=== PATIENT | male | born 1995 | race Caucasian/White ===

== ENCOUNTER 2022-05-02 11:31 | Outpatient (REF) | payer OTHER, SELFPAY ==
[2022-05-02 12:01] LABS: COVID-19 Test Negative (Negative); IDNOW Serial# 08D9AD1C
== END 2022-05-02 11:32 | disposition home or self-care (01) ==
LOC: HO.LAB 11:31
PROVIDERS: Visit Provider Internal Medicine
DX: Z20.822 Contact with and (suspected) exposure to COVID-19 (principal)
CPT/HCPCS: 87635; C9803

== ENCOUNTER 2022-05-02 12:00 | Outpatient (RCR) | payer OTHER, SELFPAY ==
--- NOTE | 2022-04-28 14:38 | PC.NURSE ---
Tommy called and stated that he can not continue because he does not have childcare.
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
[2022-05-02 10:38] LABS: Amphetamine Screen Urine Not Detected (Not Detect); Barbiturates, Urine Not Detected (Not Detect); Benzodiazepines Screen Urine Not Detected (Not Detect); Cannabinoid Screen Urine POSITIVE (Not Detect); Cocaine Screen Urine POSITIVE (Not Detect); Fentanyl, urine Not Detected (Not Detect); Opiate Screen Urine Not Detected (Not Detect); Phencyclidine Screen Urine Not Detected (Not Detect)
[2022-05-02 10:54] VITALS: BMI 19.3
--- NOTE | 2022-05-02 11:29 | PC.NURSE ---
This morning patient denied any sxs of Covid, Temperature was 98.6, and patient stated he tested negative for Covid in the last 14 days. When speaking to patient during the admission assessment he stated he tested positive for Covid on 04/24/22 using a home test and PCR test . Patient stated doctor told him at [facility] to quarantined for 5 days which he did. Patient stated he retested on 03/30/21 and tested negative with a home test. Reviewed with [facility] who stated that is the policy for hospital employees regarding quarantine for 5 days and negative test. Patient is wearing a mask while at [facility]. Reviewed with Public Administration Teacher Mary as well. Patient is currently getting a PCR test at [facility] to confirm.
[2022-05-02 11:49] VITALS: PULSE 80; TEMP 37
--- NOTE | 2022-05-02 14:15 | PC.NURSE ---
Patient tested negative for COVID. Called patient and let him know. Patient plans on coming back to the program tomorrow.
--- NOTE | 2022-05-02 14:16 | PC.ADMIT ---
Patient was referred to [facility] after he was seen in [facility] d/t increased depression with passive SI-no plan or intent, anxiety, and PTSD sxs. Stressors include a breakup with his girlfriend of 2.5 years a month ago, job loss, and was living in his car. Patient currently lives in a trailer on his mothers property. Patient struggling with substance use stating he used Cocaine yesterday after no use for 2 weeks. Patient reports he has been using Cocaine daily for the past year and prior to that had been sober for 4 years. Patient also using Marijuana daily. He also stated he had 2 sips of alcohol 2 weeks ago however stated he has been sober for 4 years. Patient is alert and oriented x4. Calm and cooperative. Denied SI or thoughts to harm himself. Medication reconciled with patient and patient's pharmacy.
--- NOTE | 2022-05-03 09:41 | PC.NURSE ---
Tommy called staff and left a message that he is stuck in traffic and would be late. At 929 I called patient and asked him if he could be here for 944. Patient stated he would not be able to be here at that time. He stated he had to drop his brother off in [place] and was stuck in [facility]. Patient apologized. Plans on coming to the program tomorrow and taking another route to get to the program so he will not be late. [facility] staff aware.
--- NOTE | 2022-05-04 08:02 | PC.NURSE ---
The client called and stated that he can not continue in the program due to lack of childcare and number of appointments. I gave him the number for [facility].
--- NOTE | 2022-05-04 15:19 | PC.NURSE ---
The client called and cancelled today because he does not have childcare.
--- NOTE | 2022-05-04 15:21 | PC.NURSE ---
I called Tommy and left a message to call me. I wanted to inform him that he will need to be here tomorrow or will have to be discharged.
--- NOTE | 2022-05-04 16:31 | PC.NURSE ---
I spoke with Tommy and informed him that he will need to be here tomorrow or he will be discharged. He said he would be here.
== END 2022-05-05 23:59 | disposition home or self-care (01) ==
LOC: HO.PHPA 12:00
PROVIDERS: Nurse Practitioner Psychiatric/Mental Health; Visit Provider Psychiatry & Neurology Psychiatry
DX: F33.1 Major depressive disorder, recurrent, moderate (principal); F41.1 Generalized anxiety disorder; F43.12 Post-traumatic stress disorder, chronic; F14.20 Cocaine dependence, uncomplicated; F10.20 Alcohol dependence, uncomplicated; F12.20 Cannabis dependence, uncomplicated
CPT/HCPCS: 80307; 90791; 90853

== ENCOUNTER 2025-04-22 21:06 | Emergency (ER) | payer BC, SELFPAY ==
[2025-04-22 21:29] VITALS: BP 120/59; PULSE 77; RESP 16; TEMP 36.6; O2SAT 97; BMI 20.5
[2025-04-22 21:46] LABS: MANUAL DIFF FLAG NO
[2025-04-22 21:47] LABS: Hematocrit 36.5 % (42.0-52.0); Hemoglobin 13.3 g/dl (14.0-18.0); Imm Gran Abs Auto 0.02 X10*3/uL (0.00-0.03); Imm Gran Pct Auto 0.2 % (0.0-0.4); Lymphocytes Absolute Auto 3.1 X10*3/uL (1.2-4.9); Mean Corpuscular HGB Conc 36.4 g/dl (31.0-36.0); Mean Corpuscular Hemoglobin 31.0 pg (27.0-33.0); Mean Corpuscular Volume 85.1 fL (80.0-98.0); NRBC Abs Auto 0.000 X10*3/uL (0.0-0.012); NRBC Pct Auto 0.0 /100WBC (0.0-0.2); Platelet Count 248 X10*3/uL (160-400); Red Blood Count 4.29 X10*6/uL (4.60-5.80); White Blood Count 8.0 X10*3/uL (4.8-10.8)
[2025-04-22 22:03] LABS: Alanine Aminotransferase 32 U/L (0-40); Albumin Level 4.5 g/dL (3.5-5.0); Alkaline Phosphatase 81 U/L (39-117); Anion Gap 12 (12-20); Aspartate Amino Transferase 36 U/L (5-37); Blood Urea Nitrogen 12 mg/dL (9-16); Calcium 9.1 mg/dL (8.4-10.2); Carbon Dioxide 25 mmol/L (22-29); Chloride 108 mmol/L (96-108); Creatinine Clr Calc Pharmacy 114.4; Estimated Glomerular Filt Rate > 60; Lipase 15 U/L (8-78); Potassium 3.9 mmol/L (3.3-5.1); Sodium 141 mmol/L (135-145); Total Protein 6.7 g/dL (6.5-8.0)
[2025-04-22 22:52] VITALS: BP 136/78; PULSE 64; RESP 14; TEMP 36.3; O2SAT 99
[2025-04-22 23:02] LABS: Appearance Urine Clear; Glucose Urine UA Negative (Negative); PH 6.0 (5.0-9.0); Specific Gravity - Urine 1.020 (1.005-1.025); UMIC TRIGGER UACC YES
--- NOTE | 2025-04-22 23:10 | MHC.EDTECH ---
pt brought in from the waiting room, changed into hospital gown, vitals obtained, pt ambulated to bathroom, UA collected and sent to lab. Call nicole within reach
[2025-04-22 23:16] LABS: Cannabinoid Screen Urine POSITIVE (Not Detect)
--- OUTSIDE RECORDS SUMMARY | 2025-04-22 23:48 | XMS_ITS | Continuity of Care Document ---
Author Name [facility] Care Team Providers Care Fabric Worker Leader Name Role Phone [facility] Unavailable Unavailable Problems Combined list of problems from Department of Defense and Veterans Affairs facilities. It does not include entries that were removed or entered in error. Problem Status Onset Date Problem Type Date of Resolution Comme nts Source Post-traumatic stress disorder, unspecified Active Condition DoD Low back pain Active Condition DoD Anxiety disorder, unspecified Active Condition DoD Allergies, Adverse Reactions, Alerts Combined list of allergies from Department of Defense and Veterans Affairs facilities. It does not include entries that were removed or entered in error. Substance Category Reaction Severity Reaction type Status Date Reported Comments Source Penicillins Drug allergy (disorder) Unknown active 08/03/2015 [place] Immunizations Combined list of available immunizations from the Department of Defense and Veterans Affairs facilities. Immunization Series Date Given Administered By Site Reaction Lot Number CVX Code Drug Hydraulic Plumber Helper Status Comments Source measles, mumps and rubella virus vaccine 1 2014 UNK 03 Unknown (UNK) Not Given measles, mumps and rubella virus vaccine DoD varicella virus vaccine 1 2014 UNK 21 Unknown (UNK) Not Given varicella virus vaccine DoD hepatitis B vaccine, adult dosage 1 2014 UNK 43 Unknown (UNK) Not Given hepatitis B vaccine, adult dosage DoD hepatitis A vaccine, adult dosage 1 2014 [id number] [employer] (SKB) complet ed hepatitis A vaccine, adult dosage DoD Adenovirus, type 4 and type 7, live, oral 1 2014 [id number] 143 [employer] (BRR) complet ed Adenoviru s, type 4 and type 7, live, oral DoD influenza, live, intranasal, quadrivalent 1 2014 [id number] [employer] (SKB) complet ed influenza , live, intranasa l, quadrival ent DoD poliovirus vaccine, inactivated 1 2014 [id number] 10 Sanofi Pasteur (PMC) complet ed polioviru s vaccine, inactivat ed DoD meningococcal polysaccharid e (groups A, C, Y and W-135) diphtheria toxoid conjugate vaccine (MCV4P) 1 2014 [id number] [employer] (SKB) complet ed meningoco ccal polysacch aride (groups A, C, Y and W-135) diphtheri a toxoid conjugate vaccine (MCV4P) DoD tetanus toxoid, reduced diphtheria toxoid, and acellular pertu is vaccine, adsorbed 1 2014 [id number] Sanofi Pasteur (PMC) complet ed tetanus toxoid, reduced diphtheri a toxoid, and acellular pertussis vaccine, adsorbed DoD Encounters Combined list of: 1) Encounters from Department of Veterans Affairs facilities going backup to the last 18 months, not all [facility] inpatient encounters are included; 2) Encounters from the Department of Defense facilities going backup to 280 months. Location Location Details Encounter Type Encounter Number Reason For Visit Attending Provider ADM Date DC Date Status Disposition Source [place] [facility]) OUTPATIENT [id number] Notes Entered by: GIRMA HUDDLESTON 05 Aug 2015 0727 ------- ------- ------- ------- -- R knee pain KIRILL AYALA 08/05 Released w/o Limitations [place] ) [place] OUTPATIENT [id number] Notes Entered by: RAUDEL NANCE 05 Aug 2015 0851 ------- ------- ------- ------- -- hearing test CLARIBEL NANCE 08/05 Released w/o Limitations [place] [place] [facility] [id number] Notes Entered by: Yvonne ANGEL 06 Aug 2015 0752 ------- ------- ------- ------- -- GUCCI DENNIS 08/06 [facility] Limitations [facility] [place] OUTPAT[place] [id number] Notes Entered by: NOLANALISIAGIRMA NTHIA 06 Aug 2015 1005 ------- ------- ------- ------- -- TARUN HUMPHRIESKIRILL JUDGE Genia 08/06 [place] Limitations [place] [place] [facility] [place] OUTPATIENT [id number] ESTELLE QUINTANA 08/11 [place]ased [place]o Limitations [place] [place] [facility] [facility] OUTPATIENT [id number] DERM/ Rash on chest ADINA EDDIETATYANATino D 08/16 [place] Limitations [place] [facility] OUTPATIENT [id number] ORTHO lower back pain MARISABEL ROSENTHAL 09/02 Released with Work/Duty Limitations [place] OUTPATIENT [id number] Notes Entered by: GRACIA DONATO 03 Sep 2015 0833 ------- ------- ------- ------- -- back GRACIA HINOJOSA 09/03 Released with Work/Duty Limitations [place] [place] OUTPATIENT [id number] Notes Entered by: DEVORAH HINOJOSA 28 Sep 2015 0725 ------- ------- ------- ------- -- knee GRACIA HINOJOSA 09/28 Released with Work/Duty Limitations [place] [place] OUTPATIENT [id number] Notes Entered by: DEVORAH HINOJOSA 30 Sep 2015 0649 ------- ------- ------- ------- -- knee GRACIA HIONJOSA 09/30 Released with Work/Duty Limitations [place] [place] OUTPATIENT [id number] Notes Entered by: DEVORAH HINOJOSA 02 Oct 2015 1213 ------- ------- ------- ------- -- knee GRACIA HINOJOSA 10/02 Released with Work/Duty Limitations [place] [place] OUTPATIENT [id number] Notes Entered by: DEVORAH HINOJOSA 02 Oct 2015 1213 ------- ------- ------- ------- -- knee GRACIA HINOJOSA 10/02 Released with Work/Duty Limitations [place] [place] OUTPATIENT [id number] Notes Entered by: DEVORAH HINOJOSA 04 Oct 2015 0632 ------- ------- ------- ------- -- GRACIA Arvizu 10/04 Released with Work/Duty Limitations [place] [place] OUTPATIENT [id number] Notes Entered by: DEVORAH HINOJOSA 05 Oct 2015 0754 ------- ------- ------- ------- -- knee GRACIA HINOJOSA 10/05 Released with Work/Duty Limitations [place] [place] OUTPATIENT [id number] Notes Entered by: ALEXA GOODWIN 05 Oct 2015 1116 ------- ------- ------- ------- -- R knee injury BERTA GOODWIN 10/05 Released w/o Limitations [place] [place] OUTPATIENT [id number] Notes Entered by: JAYNA SILVA 12 Oct 2015 0654 ------- ------- ------- ------- -- R knee AYAN PENA KIT 10/12 Released w/o Limitations [place] [place] OUTPATIENT [id number] Notes Entered by: Soheila HAYWARD 14 Oct 2015 0704 ------- ------- ------- ------- -- images r knee BECKY AYAN KIT 10/14 Released w/o Limitations [place] [place] OUTPATIENT [id number] Notes Entered by: Soheila HAYWARD 25 Oct 2015 0705 ------- ------- ------- ------- -- RTD MISTY VALDEZ 10/25 Released with Work/Duty Limitations [place] [place] [facility] OUTPATIENT [id number] Notes Entered by: CHIQUI PASTRANA 25 Oct 2015 0945 ------- ------- ------- ------- -- Reina 5-11 ALISA NG 10/25 Released w/o Limitations [place]) [place] [facility] OUTPATIENT [id number] Notes Entered by: CHIQUI PASTRANA 25 Oct 2015 1111 ------- ------- ------- ------- -- Chapter 5-11 MICHAEL MENJIVAR 10/25 Released with Work/Duty Limitations [place]) [place] OUTPATIENT [id number] URI/ cough, ear pain, congest ion RIDGE HOLDEN Mitchell 10/26 Released w/o Limitations [place]) [place] OUTPATIENT [id number] OTHER/ mental health eval refer from HAILE GARZA 11/11 Released w/o Limitations [place] [facility] Outpatient Encounter [id number] 09/13 [facility] Procedures Combined list of: 1) Procedures from Department of Veterans Affairs facilities going back up to thelast 18 months, not all [place] non-surgical procedures are included; 2) All procedures from the Department of Defense facilities. Procedure Procedure Type Code Date Perfomer Jeni connolly PHYSICAL THERAPY RE-EVALUATION [facility] PSYCHIATRIC DIAGNOSTIC EVALUATION WITH MEDICAL SERVICES [facility] PSYCHIATRIC DIAGNOSTIC EVALUATION [facility] BRIEF EMOTIONAL/BEHAVIORA L ASSESSMENT (EG, DEPRESSION INVENTORY, ATTENTION-DEFICIT/H YPERACTIVITY DISORDER [ADHD] SCALE), WITH SCORING AND DOCUMENTATION, PER STANDARDIZED INSTRUMENT [facility] PHYSICAL THERAPY RE-EVALUATION [facility] THERAPEUTIC PROCEDURE,1 OR MORE AREAS,EACH 15 MINUTES;NEUROMUSCUL AR REEDUCATION OF MOVEMENT,BALANCE,CO ORDINATION,KINESTHE TIC SENSE,POSTURE,AND/O R PROPRIOCEPTION FOR SITTING AND/OR STANDING ACTIVITIES [facility] ATHLETIC TRAINING RE-EVALUATION 016 [facility] ATHLETIC TRAINING EVALUATION [facility] ATHLETIC TRAINING EVALUATION [facility] GROUP PSYCHOTHERAPY (OTHER THAN OF A MULTIPLE-FAMILY GROUP) [facility] OPHTHALMOLOGICAL SERVICES: MEDICAL EXAMINATION AND EVALUATION WITH INITIATION OF DIAGNOSTIC AND TREATMENT PROGRAM; INTERMEDIATE, NEW PATIENT 015 [facility] INFLUENZA VIRUS VACCINE, QUADRIVALENT, LIVE (LAIV4), FOR INTRANASAL USE [facility] PSYCHIATRIC DIAGNOSTIC EVALUATION [facility] PURE TONE AUDIOMETRY (THRESHOLD), AUTOMATED; AIR ONLY [facility] Physical Medicine Physical Therapy Re-Evaluation Physical Medicine Physical Therapy Re-Evaluation [id number] [id number] MISTY VALDEZ [facility] Psychiatric Evaluation Comprehensive Examination Interactive Psychiatric Evaluation Comprehensive Examination Interactive [id number] DANE QUILES [facility] Social Work Individual Outpatient Counseling 45-50 Minutes 016 STACIA GTZ [facility] Physical Medicine Physical Therapy Re-Evaluation Physical Medicine Physical Therapy Re-Evaluation [id number] [phone] AYAN PENA [facility] Physical Therapy Neuromuscular Re-education Physical Therapy Neuromuscular Re-education [phone] BERTA GOODWIN [facility] Physical Therapy Mobilization Joint Physical Therapy Mobilization Joint [id number] [phone] BERTA GOODWIN [facility] Physical Medicine Physical Therapy Evaluation Physical Medicine Physical Therapy Evaluation [id number] [phone] BERTA GOODWIN [facility] Athletic Training Re-evaluation Athletic Training Re-evaluation [phone] GRACIA HINOJOSA [facility] Athletic Training Evaluation Athletic Training Evaluation [phone] GRACIA HINOJOSA [facility] Athletic Training Evaluation Athletic Training Evaluation [phone] GRACIA DONATO [facility] Psychiatric Therapy Group (Interview) Psychiatric Therapy Group (Interview) [phone] SHANAE HERNANDEZ [facility] Ophthalmological New Patient Start Intermediate Level Care Ophthalmological New Patient Start Intermediate Level Care [phone] ESTELLE QUINTANA [facility] Spectacles Services Fitting Monofocals (Not For Aphakia) Spectacles Services Fitting Monofocals (Not For Aphakia) [phone] ESTELLE QUINTANA [facility] Determination Of Refractive State Determination Of Refractive State [phone] ESTELLE QUINTANA [facility] Vaccines Adenovirus Type 4 Live, For Oral Use Vaccines Adenovirus Type 4 Live, For Oral Use [phone] KIRILL AYALA A single vaccine dose administered orally. [facility] Vaccines Adenovirus Type 7 Live, For Oral Use Vaccines Adenovirus Type 7 Live, For Oral Use 33746 KIRILL AYALA A single vaccine dose administered orally. DoD Immunization Admin By Intranasal / Oral Route One Vaccine Immunization Admin By Intranasal / Oral Route One Vaccine 10811 KIRILL AYALA DoD Immunization Administration Each Additional Vaccine Immunization Administration Each Additional Vaccine 51122 KIRILL AYALA DoD Tdap Vaccine Tdap Vaccine 01933 KIRILL AYALA Visit for an IM injection of 0.5mL of Boostrix (Tetanus and Diphtheria Toxoids and Acellular Pertussis). Was given in the Right Deltoid. Patient was observed for 15 min with no adverse reactions. DoD Meningococcal Polysacch Diphtheria Toxoid Conjugate Vaccine IKRILL AYALA Visit for an IM injection of 0.5mL of Meningococcal Vaccine (Menactra). Was given in the Left Deltoid. Patient was observed for 15 min with no adverse reactions. DoD Vaccines Viral Polio, Inactivated (Salk) Vaccines Viral Polio, Inactivated (Salk) 29859 KIRILL AYALA Visit for an IM injection of 0.5mL of IPOL (Poliovirus Vaccine Inactivated). Was given in the Right Deltoid. Patient was observed for 15 min with no adverse reactions. DoD Hepatitis A Vaccine Adult Dosage (Intramuscular Use) Hepatitis A Vaccine Adult Dosage (Intramuscular Use) 23350 KIRILL AYALA Visit for an IM injection of 1mL of Hepatitis A (Havrix). Was given in the Right Deltoid. Patient was observed for 15 min with no adverse reactions. DoD Immunization Admin Intranasal / Oral Each Additional Vaccine Immunization Admin Intranasal / Oral Each Additional Vaccine 83536 KIRILL AYALA [facility] Psychiatric Evaluation Comprehensive Examination Psychiatric Evaluation Comprehensive Examination 88017 [place] TIDWELL V [facility] Threshold Audiogram (Pure Tone) Automated Threshold Audiogram (Pure Tone) Automated 0208T CLARIBEL NANCE [facility] Social History Combined list of available smoking, tobacco, and other social history from Department of Defense and Veterans Affairs facilities. Social History Type Response Date Comment [facility] e This section is an empty social history section. [facility]
[2025-04-23] MEDS: Sucralfate Oral Suspension 1 GM/10 ML ORAL.SUSP PO (00:47)
--- NOTE | 2025-04-23 00:59 | ED_ITS ---
HPI - General Adult General Chief complaint: Abdominal Pain Stated complaint: severe abd pain Time Seen by Provider: 04/23/25 00:34 Source: patient Limitations: no limitations History of Present Illness ED Provider: Yuliya Washington PA-C HPI narrative: 29-year-old male with a history of alcohol use disorder, polysubstance abuse, PTSD, anxiety and depression presents with the abdominal pain. Patient states he is having generalized abdominal discomfort with the associated dark stool x4 days. Associated nausea vomiting, denies fever. When asked if the patient uses a great deal of marijuana, he states ?I do but not a lot?. Related Data Home Medications ?Medication ?Instructions ?Recorded ?Confirmed albuterol sulfate 90 mcg/actuation 1 inh inhalation QI D PRN Shortness 05/02/22 05/02/22 aerosol inhaler (ProAir HFA) Of Breath ibuprofen 400 mg tablet 400 mg PO Q6H PRN Pain 05/0205/02/22 Previous Rx's ?Medication ?Instructions ?Recorded clonidine HCl 0.1 mg tablet 0.1 mg PO BID PRN anxiety #14 tabs 05/02/22 escitalopram oxalate 10 mg tablet 10 mg PO DAILY 30 da ys #30 tabs 05/02/22 (Lexapro) quetiapine 50 mg tablet (Seroquel) 50 mg PO BEDTIME 7 days #7 tabs 05/02/22 Allergies Allergy/AdvReac Type Severity Reaction Status Date / Time Penicillins (PCN) Allergy Anaphylaxis Verified 04/22/25 21:30 droperidol AdvReac Anxiety Verified 04/23/25 01:58 pop rock candy Allergy Anaphylaxis Uncoded 05/02/22 14:26 Review of Systems 2 Review of Systems: Yes all other systems are reviewed and are negative Constitutional: Constitutional: Denies fatigue and Denies fever(s) Cardiovascular: Cardiovascular: Denies chest pain and Denies dyspnea Respiratory: Respiratory: Denies dyspnea Gastrointestinal: Gastrointestinal: Reports abdominal pain, Reports melena, Reports nausea and Reports vomiting Endocrine: Endocrine: Denies fatigue PMFSH Past Medical History Attestation statement: The following information was validated with the patient. Medical History (Updated 04/24/25 @ 00:00 by Estrella Louise) Arthritis Tinnitus Surgical History (Updated 05/02/22 @ 14:26 by Tonya Almonte RN) H/O knee surgery Social History Social History Household Members: Family Patient Tobacco Use Status: Current everyday Tobacco user Tobacco use type: Cigarette Cigarette Packs Per Day: 1 Years Smoked: Age 11 Smoked in Last 30 Days: Yes Substance Use Type: Marijuana Substance Use Frequency: Daily Advance Directives: No Advance Directives Information Provided: Yes Do you have a plan to hurt others: No Plan Physical Exam ED Vital Signs: Vital Signs - 24 hr 04/22/25 21:29 04/22/25 22:52 04/23/25 01:13 Temperature 97.9 F 97.3 F 97.3 F Pulse Rate 77 64 64 Respiratory Rate 16 14 14 Blood Pressure 120/59 L 136/78 136/78 Pulse Oximetry 97 99 99 Oxygen Delivery Method Room Air Room Air Room Air BMI result Body Mass Index 20.5 Const Other: Awake, smells of marijuana, appears intoxicated Orientation/consciousness: patient oriented x3 Eyes Other: Pupils dilated Resp Effort & Inspection: normal respiratory effort Cardio Other: Normal peripheral perfusion GI Other: Unable to inspect, unable to perform rectal exam Skin Other: Warm dry no rash Neuro General: patient oriented x3, gait normal, no focal motor deficits and CN's II- XI intact bilaterally Psych Other: Agitated, anxious, uncooperative Course Reevaluation(s) Reevaluation #1: As I began the patient's assessment, I had ordered droperidol and IV fluid, I had yet to perform an exam, including a rectal exam. The patient became extremely agitated, yelling in the room panicking after being administered the droperidol. We attempted to deescalate the patient, we told him we will give Benadryl, that it would counteract the effects. He is insisting on leaving he just wants to go home he is pulling his IV out. He wants to leave against medical advice Medications Administered Discontinued Medications Generic Name Dose Route Start Last Admin Trade Name Smoothq PRN Reason Stop Dose Admin Diphenhydramine HCl 50 mg 04/23/25 01:07 04/23/25 01:08 Diphenhydramine Hcl 50 Mg/Ml Vial IVPUSH 04/23/25 01:08 50 mg ONCE ONE Administration Droperidol 2.5 mg 04/23/25 00:33 04/23/25 00:43 Droperidol 5 Mg/2 Ml Vial IVPUSH 04/23/25 00:34 2.5 mg ONCE ONE Administration Famotidine 20 mg 04/23/25 00:34 04/23/25 00:43 Famotidine/Pf 20 Mg/2 Ml Vial IVPUSH 04/23/25 00:35 20 mg ONCE ONE Administration Sodium Chloride 1,000 mls @ 999 mls/hr 04/23/25 00:45 04/23/25 01:00 Ns IV 04/23/25 01:45 0 mls/hr .Q1H1M DEMETRI Infusion Sucralfate 1 gm 04/23/25 00:34 04/23/25 00:47 Sucralfate Oral Suspension 1 Gm/10 Ml Oral.Susp PO 04/23/25 00:35 1 gm ONCE ONE Administration Medical Decision Making Medical Decision Making [facility] Narrative: 29-year-old male with a history of alcohol use disorder, polysubstance abuse, PTSD, anxiety and depression presents with the abdominal pain. Patient states he is having generalized abdominal discomfort with the associated dark stool x4 days. Associated nausea vomiting, denies fever. When asked if the patient uses a great deal of marijuana, he states ?I do but not a lot?. Lab Data 04/22/25 21:39 04/22/25 21:39 Labs: Lab Results 04/22/25 04/22/25 Range/Units 21:39 22:56 WBC 8.0 (4.8-10.8) X10*3/uL RBC 4.29 L (4.60-5.80) X10*6/uL Hgb 13.3 L (14.0-18.0) g/dl Hct 36.5 L (42.0-52.0) % MCV 85.1 (80.0-98.0) fL MCH 31.0 (27.0-33.0) pg MCHC 36.4 H (31.0-36.0) g/dl RDW 11.9 (11.0-16.0) % Plt Count 248 (160-400) X10*3/uL MPV 8.8 L (9.4-12.4) fL Immature Gran % (Auto) 0.2 (0.0-0.4) % Neut % (Auto) 52.5 (45-73) % Lymph % (Auto) 38.0 (20-40) % Angelina % (Auto) 6.7 (2-11) % Eos % (Auto) 2.2 (0-4) % Baso % (Auto) 0.4 (0-2) % Lymph # (Auto) 3.1 (1.2-4.9) X10*3/uL Angelina # (Auto) 0.5 (0.1-1.2) X10*3/uL Eos # (Auto) 0.2 (0.0-0.4) X10*3/uL Baso # (Auto) 0.0 (0.0-0.2) X10*3/uL Abs Immat Gran (auto) 0.02 (0.00-0.03) X10*3/uL Absolute Neuts (auto) 4.2 (2.0-8.3) x10*3/uL Absolute Nucleated RBC 0.000 (0.0-0.012) X10*3/uL Nucleated RBC % (auto) 0.0 (0.0-0.2) /100WBC Sodium 141 (135-145) mmol/L Potassium 3.9 (3.3-5.1) mmol/L Chloride 108 (96-108) mmol/L Carbon Dioxide 25 (22-29) mmol/L Anion Gap 12 (12-20) BUN 12 (9-16) mg/dL Creatinine 0.81 (0.5-1.4) mg/dL Estim Creat Clear Calc 114.4 Estimated GFR > 60 Random Glucose 113 (60-115) mg/dL Calcium 9.1 (8.4-10.2) mg/dL Total Bilirubin 0.3 (0.0-1.0) mg/dL AST 36 (5-37) U/L ALT 32 (0-40) U/L Alkaline Phosphatase 81 (39-117) U/L Total Protein 6.7 (6.5-8.0) g/dL Albumin 4.5 (3.5-5.0) g/dL Lipase 15 (8-78) U/L Urine Color Yellow Urine Appearance Clear Urine pH 6.0 (5.0-9.0) Ur Specific [place] 1.020 (1.005-1.025) Urine Protein Negative (Neg-Trace) mg/dL Urine Glucose (UA) Negative (Negative) mg/dL Urine Ketones Negative (Negative) mg/dL Urine Blood Negative (Negative) Urine Nitrite Negative (Negative) Ur Leukocyte Esterase Trace H (Negative) Urine RBC 0-2 (0-2) /HPF Urine WBC 0-5 (0-5) /HPF Ur Squamous Epith Cells 0-2 (0-2) /HPF Urine Bacteria None Seen (None Seen) Hyaline Casts 0-2 (0-2) /LPF Urine Opiates Screen Not Detected (Not Detect) Ur Buprenorphine Scrn Not Detected (Not Detect) ng/mL Ur Oxycodone Screen Not Detected (Not Detect) ng/mL Urine Methadone Screen Not Detected (Not Detect) ng/mL Urine Fentanyl Screen Not Detected (Not Detect) Ur Barbiturates Screen Not Detected (Not Detect) Ur Phencyclidine Scrn Not Detected (Not Detect) Ur Amphetamines Screen Not Detected (Not Detect) U Benzodiazepines Scrn Not Detected (Not Detect) Urine Cocaine Screen Not Detected (Not Detect) U Marijuana (THC) Screen POSITIVE H (Not Detect) Discharge Plan Discharge Clinical Impression: Abdominal pain in male Patient Disposition: Left Against Medical Advice Prescriptions: No Action clonidine HCl 0.1 mg tablet 0.1 mg PO BID PRN (Reason: anxiety) Qty: 14 0RF quetiapine [Seroquel] 50 mg tablet 50 mg PO BEDTIME 7 Days Qty: 7 0RF escitalopram oxalate [Lexapro] 10 mg tablet 10 mg PO DAILY 30 Days Qty: 30 0RF ibuprofen [Motrin] 400 mg Tablet 400 mg PO Q6H PRN (Reason: Pain) albuterol sulfate [ProAir HFA] 90 mcg/actuation Hfa Aerosol Inhaler 1 inh INHALATION QID PRN (Reason: Shortness Of Breath) Stand Alone Forms: Against Medical Advice, Work/School Release Interventions: ED Discharge Assessment Last Done: 04/23/25 01:13 Discharge Date/Time: 04/23/25 01:15 Print Language: Libyan
--- NOTE | 2025-04-23 01:09 | PC.NURSE ---
Pt medicated per NOV. A few minutes after medication pt became very anxious and stating he is having a panic attack. Pt made multiple requests to leave AMA, have IV removed stating I'll sign anything . Megan provider called to bedside. Benadryl administered per NOV. Pt continues to demand to have IV removed and leave. Pt advised that driving after benadryl may be dangerous. Visitor attempting to call for a ride. Pt states he is leaving and that he is fine and can drive.
[2025-04-23 01:13] VITALS: BP 136/78; PULSE 64; RESP 14; TEMP 36.3; O2SAT 99
== END 2025-04-23 01:15 | disposition left against medical advice (07) ==
PROVIDERS: Emergency Provider Emergency Medicine
DX: R10.9 Unspecified abdominal pain (principal); R11.2 Nausea with vomiting, unspecified; R19.5 Other fecal abnormalities; Z53.29 Procedure and treatment not carried out because of patient's decision for other reasons; Z79.899 Other long term (current) drug therapy; F19.91 Other psychoactive substance use, unspecified, in remission
CPT/HCPCS: 36415; 80053; 80307; 81001; 83690; 85025; 96374; 96375; 99284; J1200; J1308; J1790